=== PATIENT | female | born 1935 | race Caucasian/White ===

== ENCOUNTER → 2019-03-19 | Outpatient (CLI) | payer MEDICARE ==
[~2019-03-19] MED LIST: AMIO200T PO; ASPI81TA85 PO; DETR4CAP PO; FLON1SPR NARES; ISOVUE-370 76% 100ML VIAL (Q9967) As Ordered ONE; LEVO75TA4 PO; LORA-674 PO; METO1TAB7 PO; MULTCAP PO; NITR4TASL SL; OMEP-218 PO; PRAM1TAB7 PO; PROP10TA56 PO; REVL15CA PO; ROSU20TA5 PO; TRAM50TA2 PO; XARE15TA PO
--- NOTE | 2019-03-19 11:16 | REP ---
CT PULMONARY ANGIOGRAM: With IV contrast. HISTORY: Evaluate for pulmonary embolus. COMPARISON STUDIES: No comparison study. CONTRAST DOSE: 100 mL of Isovue [address] TECHNIQUE: Helical scanning is acquired and overlapping 1.5 mm and contiguous 3 mm axial images are reformatted. In addition, maximum intensity projection and multiplanar re-formation images are generated in sagittal and coronal imaging projections. CT PULMONARY ANGIOGRAPHIC FINDINGS: Preliminary digital power system dispatcher radiograph demonstrates an inferior vena cava filter and cardiomegaly. Axial CT images show moderate right pleural effusion. There is also a mild to moderate pericardial effusion. There is good opacification of the pulmonary arterial tree. There is no CT evidence of pulmonary embolism. Thoracic aorta enhances homogeneously without evidence of aneurysm or dissection. No adrenal lesion is seen. Visualized upper abdominal structures are unremarkable. Lung window settings demonstrate an ill-defined somewhat spiculated appearing nodule in the superior segment of the left lower lobe. This measures 10 mm in greatest diameter. Inferiorly adjacent to this there is a 4 mm nodule. There is a 5 mm noncalcified nodule in the left lower lobe. There is a broad pleural-based 1.5 cm nodule in the left lower lobe on the diaphragm which may be a pleural plaque. There is a small sliding-type hiatal hernia. IMPRESSION: 1. No CT evidence of pulmonary embolus. 2. Moderate right pleural effusion and pericardial effusion. 3. Multiple pulmonary nodules the largest which is a spiculated nodule 1 cm in diameter in the superior segment left lower lobe. Malignancy not excluded. Electronically Signed by Taye Lucero MD 03/19/2019 05:29 P
== END ==
LOC: M RAD 10:04
PROVIDERS: ATTEND Internal Medicine
DX: C90.00 Multiple myeloma not having achieved remission (principal); Z95.828 Presence of other vascular implants and grafts; I51.7 Cardiomegaly; I31.3 Pericardial effusion (noninflammatory); J90 Pleural effusion, not elsewhere classified; K44.9 Diaphragmatic hernia without obstruction or gangrene; R91.8 Other nonspecific abnormal finding of lung field

== ENCOUNTER → 2019-03-26 | Outpatient (CLI) | payer MEDICARE ==
[~2019-03-26] MED LIST changes: -ISOVUE-370 76% 100ML VIAL (Q9967) As Ordered ONE
--- NOTE | 2019-03-26 14:15 | REP ---
PA and lateral chest: Comparison is the chest CT dated 03/19/2019. On the comparison CT there was a right pleural effusion. There is a right pleural effusion on the plain film study today. On the comparison CT there were multiple lung nodules. These are not visible on the plain film study today. On the comparison CT there was a pericardial effusion. This is not visible on plain film studies. On the study today the lung lind otherwise clear. The cardiac size is upper normal. The tim and mediastinum are unremarkable. 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 Electronically Signed by Brayan Iniguez MD 03/26/2019 02:06 P
== END ==
LOC: M LAB 10:29
PROVIDERS: ATTEND Internal Medicine
DX: J18.9 Pneumonia, unspecified organism (principal); M19.011 Primary osteoarthritis, right shoulder; M19.012 Primary osteoarthritis, left shoulder

== ENCOUNTER → 2019-04-08 | Day surgery (SDC) | payer MEDICARE ==
[~2019-04-08] VITALS: Ht 157.5 cm; Wt 81.6 kg
[~2019-04-08] MED LIST changes: +LIDOCAINE 1% MDV 20ML VIAL XX ONE; +ONDANSETRON 4MG/2ML VIAL (J2405) As Ordered ONE; +ONDANSETRON 4MG/2ML VIAL (J2405) IV ONE
[2019-04-08 09:36] LABS: BASO % 0.3 % (0.0-1.0); EOS # 0.4 10^3/uL (0.0-0.5); EOS % 5.3 % (0.0-3.0); HEMATOCRIT 31.7 % (36.0-47.0); HEMOGLOBIN 9.8 g/dl (12.0-15.5); LYMPH # 1.6 10^3/uL (1.5-5.0); LYMPH % 20.8 % (24.0-44.0); MEAN CORPUSCULAR HGB CONC 30.9 g/dl (32.0-36.5); MEAN CORPUSCULAR VOLUME 100.3 fl (80.0-96.0); MONO # 0.7 10^3/uL (0.0-0.8); MONO % 8.3 % (0.0-5.0); NEUTROPHILS % 64.3 % (36.0-66.0); PLATELET COUNT, AUTOMATED 115 10^3/uL (150-450); RED BLOOD COUNT 3.16 10^6/uL (4.00-5.40); WHITE BLOOD COUNT 7.8 10^3/uL (4.0-10.0)
[2019-04-08 09:43] LABS: INR 1.03; PROTHROMBIN TIME 13.2 SECONDS (11.8-14.0)
[2019-04-08 09:44] LABS: PARTIAL THROMBOPLASTIN TIME 24.1 SECONDS (25.0-38.4)
[2019-04-08 09:56] VITALS: BP 167/74
[2019-04-08 10:03] LABS: ALBUMIN 3.3 GM/DL (3.2-5.2); BILIRUBIN,TOTAL 0.5 MG/DL (0.2-1.0); CALCIUM LEVEL 8.7 MG/DL (8.8-10.2); CREATININE FOR GFR 1.23 MG/DL (0.55-1.30); GLOMERULAR FILTRATION RATE 44.4 (>32); POTASSIUM SERUM 4.3 MEQ/L (3.5-5.1); TOTAL PROTEIN 5.9 GM/DL (6.4-8.2)
--- NOTE | 2019-04-08 10:44 | RO ---
DATE OF PROCEDURE: 04/08/2019 PREOPERATIVE DIAGNOSIS: Right pleural effusion. POSTOPERATIVE DIAGNOSIS: same PROCEDURE: Right posterior chest wall ultrasound preceding possible thoracentesis. SURGEON: Denton Gardner DO PERSONAL ATTENDANT:none ANESTHESIA:none Dr. Varghese in attendance. DESCRIPTION OF PROCEDURE: The patient was placed in the sitting position. The left and right posterior thorax were ultrasound and there was no significant fluid on the left. There was positive lung sliding on the left. The right showed very minimal pleural effusion not enough fluid for thoracentesis. It had significantly reduced compared to prior chest x-ray that was obtained on 03/26/2019 at [facility]. Pre-procedure the patient was interviewed. She also noticed decrease in her lower extremity edema. She no longer has pitting edema in her lower extremities. Her cough is also improved. It is not clear whether this was due to antibiotic administration or fluid reduction. Therefore, no thoracentesis was performed due to lack of enough fluid for a safe removal. Overall impression is this is due to congestive heart failure as her dependent edema improves her pleural effusion improves. The patient is anemic on blood work today 9.8, however this is improved since her last hemoglobin check that was in 8 range. The patient does have dark stools. The patient's family has been closely following this. She has followup with her primary care and [facility]. I have encouraged followup within the next 2 weeks. The patient does have occasional anginal symptoms. She is followed closely by cardiology. I have explained to the family if she develops anginal symptoms that persist that she should go to the emergency room. She does have Nitrostat at home. We reviewed the use of this. The patient is not established in this area and will not be coming back to this area, and therefore, she has followup with a medical imaging director in [place], [employer] in [place]. I have asked the family to request records for review and that she obtain a chest x-ray in approximately 3 weeks to monitor for recurrence of the pleural effusion. Patient's biggest complaint today is right hip pain and points to the right posterior sacrum. Physical exam: I review the vitals on the nursing intake form. Gen: awake, alert and conversant HEENT: sclera clear and anicteric, mucous membranes moist, tongue midline with lesion Neck: suplle, no tracheal deviation, JVP has decreased Card: irregularly, irregular s1,s2 with variable grade 2/6 systolic murmur, jvp decreased from last exam. PMI displaced laterally. Pulm: decreased breath sounds right bas but better air entry than last exam. dullness to percussion has decreased. no increase in tactile fremitus lung sounds are clear without rales, rhonchi or wheeze. Abd: Soft, non-tender, Nondistended. No mass or hernia Musculoskeletal: right on left sacral rotation, L5 rotated right sidebent left ambulation not tested but standing tested after treatment- no evidence of unilateral weakness Ext: No cyanosis, clubbing or edema. OMM: right SI joint release was performed followed by BLT of the L5 lesion. finished with myofascial technique. Patient had improvement of pain and was able to more easily obtain a standing position. Impression: 1. Right pleural effusion: improved along with less lower extremity edema. Likely CHF. Recommend follow up with CXR in 3 weeks with her medical imaging director and [employer]. If there is recurrence would consider thoracentesis at that time. Patient to resume her outpatient blood thinner today. 2. Anemia, multiple potential etiologies: also improved compared to priors, complaining of some dark stools, follow up recommended within 2 weeks. She and her son directed to go to the ER with angina and bloody stools. 3. Chronic angina: patient has a protocol as outlined by her [employer] as when to use her nitro, she understands uncontrolled angina she is to go to the er by ambulance. 4. Cough: improved. patient attributes to antibiotic prescribed by urgent care. I question whether this was airway edema. 5. Right hip pain: sacral rotation with L5 lesion- successfully treated with OMT. no complications and patient expressed improvement. If pain persists encourage to review with PCP. ' MTDD
== END | disposition home or self-care (01) ==
LOC: M OPP 08:39
PROVIDERS: ATTEND Internal Medicine Pulmonary Disease
DX: J90 Pleural effusion, not elsewhere classified (principal)